=== PATIENT | female | born 1965 | race Caucasian/White ===

== ENCOUNTER 2023-06-27 09:05 | Emergency (ER) | payer OTHER ==
--- NOTE | 2023-06-27 09:21 | ERPHSYRPT ---
- History of Present Illness Time Seen by Provider: 06/27/23 09:20 Source: patient Exam Limitations: no limitations Physician History: This is a 58-year-old white female patient who states she has a history of mitral valve prolapse and she presents with left sided rib/chest pain that came on suddenly this morning at 7 AM after bending over the arm of a chair to pick something off the floor. She was fine prior to this. She is now having some tenderness in that same area with a deep breath. She has not had a fever. She denies sore throat. She denies cough. She describes the pain as a type of "grabbing". She has no documented coronary artery disease. She has no documented lung disease. Patient has a history of hypertension, gastroesophageal reflux disease and anxiety/depression issues. Timing/Duration: today Activities at Onset: other (Bent over the arm of a chair) Severity of Dyspnea-Max: none Severity of Dyspnea-Current: none Possible Cause: no prior episodes Modifying Factors: Improves With: deep breath (Hurts in the area that was bent over the chair this morning) Associated Symptoms: denies symptoms Allergies/Adverse Reactions: No Known Drug Allergies Allergy (Verified 06/27/23 09:06) Home Medications: Amlodipine Besylate 5 mg [Norvasc 5 mg] 1 tab PO DAILY 06/27/23 [History] Citalopram Hydrobromide [Celexa] 1 tab PO DAILY 06/27/23 [History] Estradiol [Estrace] 1 tab PO DAILY 06/27/23 [History] Medroxyprogesterone Acetate 1 tab PO DAILY 06/27/23 [History] Omeprazole 1 tab PO DAILY 06/27/23 [History] Travel Risk - International Travel Have you traveled outside of the country in past 3 weeks: No - Coronavirus Screening Are you exhibiting any of the following symptoms?: No Close contact with a COVID-19 positive Pt in past 14-21 Days: No - Review of Systems Constitutional: No Symptoms Eyes: No Symptoms Ears, Nose, & Throat: No Symptoms Respiratory: Other (Left side rib pain with deep inspiration) Cardiac: No Symptoms Abdominal/Gastrointestinal: No Symptoms Genitourinary Symptoms: No Symptoms Musculoskeletal: No Symptoms Skin: No Symptoms Neurological: No Symptoms Psychological: No Symptoms Endocrine: No Symptoms Hematologic/Lymphatic: No Symptoms Immunological/Allergic: No Symptoms All Other Systems: Reviewed and Negative - Past Medical History Neurological History: No Pertinent History Cardiac History: No Pertinent History Respiratory History: No Pertinent History Endocrine Medical History: No Pertinent History Musculoskeletal History: No Pertinent History - Nursing Vital Signs Nursing Vital Signs: Initial Vital Signs Temperature 98.7 F 06/27/23 09:05 Pulse Rate 74 06/27/23 09:05 Respiratory Rate 20 06/27/23 09:05 Blood Pressure 146/70 06/27/23 09:05 O2 Sat by Pulse Oximetry 96 06/27/23 09:05 Pain Scale Pain Intensity 8 - Physical Exam General Appearance: no apparent distress, alert, anxiety Eye Exam: PERRL/EOMI, eyes nml inspection Ears, Nose, Throat Exam: hearing grossly normal, normal ENT inspection, normal pharynx Neck Exam: normal inspection, non-tender, supple, full range of motion Respiratory Exam: normal breath sounds, chest tenderness (Left anterior lateral), lungs clear, airway intact, No respiratory distress Cardiovascular/Chest Exam: normal heart sounds, regular rate/rhythm Abdominal/Gastrointestinal Exam: soft, normal bowel sounds, No tenderness Rectal Exam: not done Extremity Exam: non-tender, normal range of motion, normal inspection, normal capillary refill, no calf tenderness, no pedal edema, pelvis stable Neurologic Exam: alert, oriented x 3, cooperative, newsagent II-XII nml as tested, normal mood/affect, nml cerebellar function, nml station & gait, sensation nml Skin Exam: normal color, warm, dry Lymphatic Exam: No adenopathy SpO2 Interpretation: normal O2 Delivery: Room Air - Course Nursing assessment & vital signs reviewed: Yes EKG Interpreted by Me: RATE (70), Sinus Rhythm, NORMAL AXIS, NORMAL INTERVALS, NORMAL QRS, NORMAL ST-T, Other (No acute ischemic changes on today's twelve-lead EKG) Ordered Tests: Active Orders 24 hr Category Date Time Status Cell Efficiency Supervisor STAT Care 06/27/23 09:35 Active EKG-ER Only STAT Care 06/27/23 09:34 Active CHEST 1 VIEW (PORTABLE) Stat Exams 06/27/23 09:34 Completed CBC W DIFF Stat Lab 06/27/23 09:50 Completed CMP Stat Lab 06/27/23 09:50 Completed D-DIMER QUANTITATIVE Stat Lab 06/27/23 09:50 Completed TROPONIN Q4H Lab 06/27/23 09:50 Completed TROPONIN Q4H Lab 06/27/23 13:45 Ordered TROPONIN Q4H Lab 06/27/23 17:45 Ordered Lab/Rad Data: Laboratory Result Diagrams 06/27/23 09:50 06/27/23 09:50 Laboratory Results 06/27/23 06/27/23 06/27/23 Range/Units 09:50 09:50 09:50 WBC (4.0-10.5) x10^3/uL RBC (4.1-5.4) x10^6/uL Hgb (12.0-16.0) g/dL Hct (35-47) % MCV (78-100) fL MCH (26-32) pg MCHC (32-36) g/dL RDW (11.5-14.0) % Plt Count (150-450) x10^3/uL MPV (7.5-11.0) fL Gran % (36.0-66.0) % Immature Gran % (Auto) (0.00-0.4) % Nucleat RBC Rel Count (0.00-0.1) % Eos # (Auto) (0-0.5) x10^3/uL Immature Gran # (Auto) (0.00-0.03) x10^3u/L Absolute Lymphs (auto) (1.0-4.6) x10^3/uL Absolute Monos (auto) (0.0-1.3) x10^3/uL Absolute Nucleated RBC (0.00-0.01) x10^3u/L Lymphocytes % (24.0-44.0) % Monocytes % (0.0-12.0) % Eosinophils % (0.00-5.0) % Basophils % (0.0-0.4) % Absolute Granulocytes (1.4-6.9) x10^3/uL Basophils # (0-0.4) x10^3/uL D-Dimer < 0.19 (0.0-0.50) mg/L Sodium 141 (137-145) mmol/L Potassium 4.2 (3.5-5.1) mmol/L Chloride 106 (98-107) mmol/L Carbon Dioxide 27 (22-30) mmol/L Anion Gap 12.4 (5-15) MEQ/L BUN 15 (7-17) mg/dL Creatinine 0.64 (0.52-1.04) mg/dL Estimated GFR > 60.0 ML/MIN Glucose 100 (74-106) mg/dL Calcium 8.7 (8.4-10.2) mg/dL Total Bilirubin 0.70 (0.2-1.3) mg/dL AST 23 (14-36) U/L ALT 25 (0-35) U/L Alkaline Phosphatase 95 (38-126) U/L Troponin I < 0.012 (0.000-0.034) ng/mL Serum Total Protein 7.6 (6.3-8.2) g/dL Albumin 4.1 (3.5-5.0) g/dL 06/27/23 Range/Units 09:50 WBC 6.0 (4.0-10.5) x10^3/uL RBC 4.44 (4.1-5.4) x10^6/uL Hgb 14.5 (12.0-16.0) g/dL Hct 44.7 (35-47) % MCV 100.7 H (78-100) fL MCH 32.7 H (26-32) pg MCHC 32.4 (32-36) g/dL RDW 12.6 (11.5-14.0) % Plt Count 286 (150-450) x10^3/uL MPV 10.1 (7.5-11.0) fL Gran % 56.6 (36.0-66.0) % Immature Gran % (Auto) 1.0 H (0.00-0.4) % Nucleat RBC Rel Count 0.0 (0.00-0.1) % Eos # (Auto) 0.22 (0-0.5) x10^3/uL Immature Gran # (Auto) 0.06 H (0.00-0.03) x10^3u/L Absolute Lymphs (auto) 1.53 (1.0-4.6) x10^3/uL Absolute Monos (auto) 0.70 (0.0-1.3) x10^3/uL Absolute Nucleated RBC 0.00 (0.00-0.01) x10^3u/L Lymphocytes % 25.7 (24.0-44.0) % Monocytes % 11.7 (0.0-12.0) % Eosinophils % 3.7 (0.00-5.0) % Basophils % 1.3 (0.0-0.4) % Absolute Granulocytes 3.37 (1.4-6.9) x10^3/uL Basophils # 0.08 (0-0.4) x10^3/uL D-Dimer (0.0-0.50) mg/L Sodium (137-145) mmol/L Potassium (3.5-5.1) mmol/L Chloride (98-107) mmol/L Carbon Dioxide (22-30) mmol/L Anion Gap (5-15) MEQ/L BUN (7-17) mg/dL Creatinine (0.52-1.04) mg/dL Estimated GFR ML/MIN Glucose (74-106) mg/dL Calcium (8.4-10.2) mg/dL Total Bilirubin (0.2-1.3) mg/dL AST (14-36) U/L ALT (0-35) U/L Alkaline Phosphatase (38-126) U/L Troponin I (0.000-0.034) ng/mL Serum Total Protein (6.3-8.2) g/dL Albumin (3.5-5.0) g/dL - Progress Progress: improved, re-examined Air Movement: good Progress Note: 06/27/23 09:56 This patient's medical issue is 1 of moderate complexity. The level complexity in the work-up performed is based on review of the patient's past medical history, review of the patient's medication list, review the patient drug allergy list, history present illness and physical findings on examination. The work-up in this patient includes twelve-lead EKG, D-dimer level, troponin level, chest x-ray, CBC and CMP. Chest x-ray was interpreted by the radiologist and I reviewed the impression. There is mild, left base discoid atelectasis versus scarring. The remainder of the chest x-ray is negative. 06/27/23 10:34 I reviewed and interpreted the results of the laboratory studies. There is no evidence of any acute, emergent medical issue. Likely, the patient has muscle skeletal pain. We will provide her ibuprofen 600 mg orally now. She may return to work without restrictions. We will send a prescription of Norflex to her pharmacy. Blood Culture(s) Obtained: No Antibiotics given: No Counseled pt/family regarding: lab results, diagnosis, need for follow-up, rad results Medical Desision Making - Diagnostic Testing Diagnostic test were ordered, analyzed, and reviewed by me: Yes Radiological Interpretation: Reviewed by me, Teleradiologist Report - Risk of complications The pt has a mod risk of morbidity or mortality based on: Need for prescription drug management - Departure Departure Disposition: Home Clinical Impression: Musculoskeletal pain Condition: Stable Critical Care Time: No Referrals: [facility] [Primary Care Provider] - Follow up/PCP as directed Additional Instructions: Take either ibuprofen or Tylenol as discussed at home for your pain. Continue your other medication as prescribed. Call your primary care provider today to make arranges for follow-up appointment in the next 3 to 5 days for further evaluation and management. Forms: Work/School Release Form Prescriptions: Orphenadrine Citrate 100 mg [Norflex 100 MG Tablet] 100 mg PO BID #10 tab
[2023-06-27 09:24] VITALS: TEMP 98.7
--- NOTE | 2023-06-27 09:48 | XRAY ---
Indication: Left chest pain. Comparison: None Portable chest demonstrates mild left base discoid atelectasis/scarring. Remaining heart and lungs unremarkable. Bony thorax intact.
[2023-06-27 09:58] LABS: Absolute Neutrophil Ct (ANC) 3.37 x10^3/uL (1.4-6.9); BASOPHIL % 1.3 % (0.0-0.4); Basophil (Absolute #) 0.08 x10^3/uL (0-0.4); Eosinophil % 3.7 % (0.00-5.0); Eosinophil (Absolute #) 0.22 x10^3/uL (0-0.5); Hematocrit 44.7 % (35-47); Hemoglobin 14.5 g/dL (12.0-16.0); IMMATURE GRAN # 0.06 x10^3u/L (0.00-0.03); Lymphocyte (Absolute #) 1.53 x10^3/uL (1.0-4.6); Lymphocytes % 25.7 % (24.0-44.0); Mean Cell Volume 100.7 fL (78-100); Mean Corpuscular Hemoglobin 32.7 pg (26-32); Mean Corpuscular Hgb Concent. 32.4 g/dL (32-36); Mean Platelet Volume 10.1 fL (7.5-11.0); Monocytes % 11.7 % (0.0-12.0); Neutrophil % 56.6 % (36.0-66.0); Platelet Count 286 x10^3/uL (150-450); Red Blood Count 4.44 x10^6/uL (4.1-5.4); Red Cell Distribution Width 12.6 % (11.5-14.0)
[2023-06-27 10:12] LABS: ALBUMIN 4.1 g/dL (3.5-5.0); ALKALINE PHOSPHATASE 95 U/L (38-126); ANION GAP 12.4 MEQ/L (5-15); BLOOD UREA NITROGEN 15 mg/dL (7-17); CHLORIDE 106 mmol/L (98-107); Calcium 8.7 mg/dL (8.4-10.2); Carbon Dioxide 27 mmol/L (22-30); Creatinine 1 0.64 mg/dL (0.52-1.04); EST GLOMERULAR FILTRATION RATE > 60.0 ML/MIN; Glucose 100 mg/dL (74-106); Potassium 4.2 mmol/L (3.5-5.1); SGOT/AST 23 U/L (14-36); SGPT/ALT 25 U/L (0-35); SODIUM 141 mmol/L (137-145); Total Protein 7.6 g/dL (6.3-8.2)
[2023-06-27 10:23] VITALS: PULSE 71
[2023-06-27] MEDS ORDERED: MOTRIN 600 MG PO ONE (10:33)
[2023-06-27] MEDS ORDERED: MOTRIN 600 MG ONE (10:50)
[2023-06-27 10:57] VITALS: BP 128/73; RESP 18; O2SAT 98
== END 2023-06-27 11:04 | disposition home or self-care (01) ==
LOC: ED 09:05
DX: R07.81 Pleurodynia (principal); I10 Essential (primary) hypertension; Z79.899 Other long term (current) drug therapy
CPT/HCPCS: 36415; 71045; 80053; 84484; 85025; 85379; 93005; 93041; 99284; A9270-GY

== ENCOUNTER 2024-01-02 23:19 | Emergency (ER) | payer OTHER ==
--- NOTE | 2024-01-02 23:23 | ERPHSYRPT ---
- History of Present Illness Time Seen by Provider: 01/02/24 23:22 Source: patient Exam Limitations: no limitations Physician History: This is a 58-year-old white female patient who presents to the emergency department with left third digit swelling and burning sensation pain after reaching in to a grassy area and felt as though she might have been bit by some type of insect. It was not seen. Patient does have an allergy to bee stings. She did not notice any bees in the area she was at. Patient has a history of mitral valve prolapse, hypertension, gastroesophageal reflux disease, anxiety, depression Occurred: just prior to arrival Method of Injury: other (Possible insect bite) Severity of Pain-Max: mild Severity of Pain-Current: mild Extremities Pain Location: 3rd finger: left Modifying Factors: Improves With: nothing Associated Symptoms: none Allergies/Adverse Reactions: No Known Drug Allergies Allergy (Verified 06/27/23 09:06) Home Medications: Amlodipine Besylate 5 mg [Norvasc 5 mg] 1 tab PO DAILY 06/27/23 [History] Citalopram Hydrobromide [Celexa] 1 tab PO DAILY 06/27/23 [History] Estradiol [Estrace] 1 tab PO DAILY 06/27/23 [History] Medroxyprogesterone Acetate 1 tab PO DAILY 06/27/23 [History] Omeprazole 1 tab PO DAILY 06/27/23 [History] Hx Tetanus, Diphtheria Vaccination/Date Given: Yes Hx Influenza Vaccination/Date Given: Yes Hx Pneumococcal Vaccination/Date Given: No Travel Risk - International Travel Have you traveled outside of the country in past 3 weeks: No - Emerging Infectious Disease Are you exhibiting symptoms associated with any current EIDs: No - Review of Systems Constitutional: No Symptoms Eyes: No Symptoms Ears, Nose, & Throat: No Symptoms Respiratory: No Symptoms Cardiac: No Symptoms Abdominal/Gastrointestinal: No Symptoms Genitourinary Symptoms: No Symptoms Musculoskeletal: Other (Mild swelling left third digit of the hand) Skin: No Symptoms Neurological: No Symptoms Psychological: No Symptoms Endocrine: No Symptoms Hematologic/Lymphatic: No Symptoms Immunological/Allergic: No Symptoms All Other Systems: Reviewed and Negative - Past Medical History Pertinent Past Medical History: Yes Neurological History: No Pertinent History Cardiac History: No Pertinent History Respiratory History: No Pertinent History Endocrine Medical History: No Pertinent History Musculoskeletal History: No Pertinent History GI Medical History: GERD Psycho-Social History: Anxiety, Depression Other Medical History: Mitral Valve Prolapse, Pleurisy - Past Surgical History Past Surgical History: Yes Female Surgical History: Section - Social History Smoking Status: Never smoker Exposure to second hand smoke: No Drug Use: none Patient Lives Alone: No - Physical Exam General Appearance: no apparent distress, alert, anxiety Eyes, Ears, Nose, Throat Exam: normal ENT inspection, moist mucous membranes Neck Exam: normal inspection, non-tender, supple, full range of motion Cardiovascular/Respiratory Exam: chest non-tender, no respiratory distress Abdominal Exam: non-tender Back Exam: normal inspection, normal range of motion, No CVA tenderness, No vertebral tenderness Shoulder Exam: normal inspection, non-tender, no evidence of injury, normal ROM Elbow/Forearm Exam: normal inspection, non-tender, no evidence of injury, normal ROM Wrist Exam: normal inspection, non-tender, no evidence of injury, normal ROM Hand Exam: normal ROM, soft tissue tenderness (Left third digit of the hand), swelling (Mild swelling left third digit of the hand with faint "puncture" sites x 2) Neuro/Tendon Exam: normal sensation, normal motor functions, normal tendon functions Mental Status Exam: alert, oriented x 3, cooperative Skin Exam: other (See above extremity section/hand) SpO2 Interpretation: normal O2 Delivery: Room Air - Course Nursing assessment & vital signs reviewed: Yes Ordered Tests: Medication Summary Discontinued Medications Generic Name Dose Route Start Last Admin Trade Name Freq PRN Reason Stop Dose Admin Diphenhydramine HCl 50 mg 01/02/24 23:29 Diphenhydramine Hcl 25 Mg Capsule PO 01/02/24 23:30 STAT ONE Famotidine 40 mg 01/02/24 23:29 Famotidine 20 Mg Tablet PO 01/02/24 23:30 STAT ONE Prednisone 20 mg 01/02/24 23:30 Prednisone 20 Mg Tablet PO 01/02/24 23:31 STAT ONE - Progress Progress: unchanged Progress Note: 01/02/24 23:38 My medical decision making and the assignment of low complexity to this medical issue is based on review of the patient's past medical history, review the patient's medication list, review the patient drug allergy list, history present illness and physical findings on examination. No radiographic or laboratory studies are necessary in this patient Differential diagnosis includes insect bite, allergic reaction, topical exposure to allergen Counseled pt/family regarding: diagnosis, need for follow-up Medical Desision Making - Independent Historian Additional History obtained from: Family - Diagnostic Testing Diagnostic test were ordered, analyzed, and reviewed by me: No - Risk of complications The pt has a mod risk of morbidity or mortality based on: Need for prescription drug management - Departure Departure Disposition: Home Clinical Impression: Allergic reaction Condition: Stable Critical Care Time: No Referrals: [facility] [Primary Care Provider] - Follow up/PCP as directed Additional Instructions: Ice pack to area 3 times a day for the next 48 hours. Use Benadryl 25 mg orally every 8 hours for the next 4 days. Take your Pepcid prescription daily for 5 days. If redness persists despite using Benadryl and Pepcid, fill the prescription for prednisone and the antibiotic to treat increased cellulitis if there is redness and warmth present. Follow-up with your primary care provider on 01/05/2024 to arrange an appointment for further evaluation and management. Prescriptions: Prednisone 10 mg [Deltasone 10 mg] 10 mg PO TID #12 tablet Cephalexin Mh 500 mg [Keflex 500 mg] 500 mg PO TID #15 cap Famotidine 20 mg [Pepcid 20 MG] 20 mg PO DAILY #5 tablet
[2024-01-02 23:36] VITALS: BP 157/80; PULSE 75; RESP 18; TEMP 97.9; O2SAT 95
[2024-01-02] MEDS ORDERED: BENADRYL 25 MG CAPSULE ONE (23:41)
[2024-01-02] MEDS ORDERED: Pepcid 20 MG ONE (23:41)
[2024-01-02] MEDS ORDERED: DELTASONE 20 MG ONE (23:41)
[2024-01-02] MEDS: BENADRYL 25 MG CAPSULE PO ONE (23:45)
[2024-01-02] MEDS: DELTASONE 20 MG PO ONE (23:45)
[2024-01-02] MEDS: Pepcid 20 MG PO ONE (23:45)
== END 2024-01-03 00:10 | disposition home or self-care (01) ==
LOC: ED 23:19
DX: T78.40XA Allergy, unspecified, initial encounter (principal); M79.645 Pain in left finger(s); I10 Essential (primary) hypertension; Z79.52 Long term (current) use of systemic steroids; Z79.899 Other long term (current) drug therapy
CPT/HCPCS: 99282; A9270-GY

== ENCOUNTER 2025-06-07 05:57 | Day surgery (SDC) | payer OTHER ==
[2025-06-07] MEDS ORDERED: CEFAZOLIN SODIUM ONE (06:11)
[2025-06-07] MEDS: Lactated Ringers 1,000 ML IV SCH (06:15)
[2025-06-07 06:32] LABS: Hematocrit 41.4 % (34.1-44.9); Hemoglobin 13.7 g/dL (11.2-15.7); Mean Corpuscular Hemoglobin 33.3 pg (25.6-32.2); Mean Corpuscular Hgb Concent. 33.1 g/dL (32.2-35.5); Platelet Count 254 x10^3/uL (182-369); Red Blood Count 4.11 x10^6/uL (3.93-5.22); White Blood Count 7.7 x10^3/uL (3.98-10.04)
[2025-06-07 06:47] LABS: Calcium 8.6 mg/dL (8.4-10.2); Carbon Dioxide 27.0 mmol/L (22-30); Creatinine 1 0.79 mg/dL (0.52-1.04); EST GLOMERULAR FILTRATION RATE 86.1 ML/MIN; Glucose 94.0 mg/dL (74-106); Potassium 4.1 mmol/L (3.5-5.1); SGOT/AST 19.0 U/L (14-36); SGPT/ALT 13.0 U/L (0-35); Total Protein 7.4 g/dL (6.3-8.2)
[2025-06-07] MEDS ORDERED: Marcaine Mpf 0.5% Vial 30 Ml ONE (06:55)
[2025-06-07] MEDS ORDERED: Xylocaine 1% Vial 30 ML PF IJ ONE (06:55)
[2025-06-07] MEDS ORDERED: Versed 2 MG/2 ML Injection ONE (07:28)
[2025-06-07] MEDS ORDERED: Xylocaine-Mpf 2% 5 Ml Vial ONE (07:28)
[2025-06-07] MEDS ORDERED: propofoL IV ONE ×2 (07:28→07:44)
[2025-06-07] MEDS ORDERED: SUBLIMAZE 100 MCG/2 ML ONE (07:28)
[2025-06-07 08:41] VITALS: RESP 14; TEMP 97.3
[2025-06-07 08:59] VITALS: BP 152/85; PULSE 75; O2SAT 100
--- NOTE | 2025-06-09 11:49 | OP ---
SURGERY DATE/TIME: 06/07/2025 [id number] PREOPERATIVE DIAGNOSES: 1) Ingrowing toenail. 2) Right foot pain. 3) Left foot pain. 4) Onychomycosis. POSTOPERATIVE DIAGNOSES: 1) Ingrowing toenail. 2) Right foot pain. 3) Left foot pain. 4) Onychomycosis. PROCEDURE: Nail avulsion with matrixectomy, hallux bilateral. SURGEON: Sridhar Friend DPM FRONT TENDER: None. ANESTHESIA: Monitored anesthesia care plus intraoperative local block. See injectables for details. HEMOSTASIS: Pressure dressing. ESTIMATED BLOOD LOSS: Approximately 2 mL. MATERIALS: None. INJECTABLES: 20 mL of 1:1 mixture of 1% lidocaine plain and 0.5% bupivacaine plain injected in a hallux block-type fashion to the bilateral lower extremities; 20 mL total, 10 mL per hallux. INDICATIONS: The patient is a very pleasant 60-year-old female who presented to my service with complaints of ingrowing toenail as well as onychomycosis of the bilateral hallux toes. From that standpoint, patient has a significant amount of anxiety and was consented for the procedure in office; however, given the severity of her anxiety and options being discussed, patient preferred to undergo mild sedation for the procedure. Patient has been made aware of all risks, complications, and benefits of surgical intervention at this time including, but not limited to, infection, hematoma, seroma, possibility of delayed wound healing, non-wound healing, possible need for further surgical intervention, possible failure of surgical intervention. Plenty of time was allowed for the patient to ask questions, which were answered to her apparent satisfaction. It is at this time we decided to proceed. DESCRIPTION OF PROCEDURE AND FINDINGS: Patient was brought into the operating room and placed on the operating room table in the supine position. At this time, monitored anesthesia care was administered until the patient was adequately sedated. Bilateral lower extremities were prepped and draped in the typical sterile fashion and lowered onto the surgical field. A 10 mL injection was utilized to block the hallux in a hallux block-type fashion, utilizing 10 mL of a 1:1 mixture of 1% lidocaine plain and 0.5% bupivacaine plain injected in a hallux block to the right and left hallux. Once this took effect, a Mansfield was utilized to elevate the nail from the nail bed. This was carried down to the nail matrix, and then utilizing a curved Bety, this was then removed from the site. A small curette was then utilized to damage the nail matrix; 89% phenol was utilized to ablate the nail matrix with three 30-second applications, making sure to cover the entirety of the nail matrix. From that standpoint, 70% isopropyl alcohol was utilized to flush the surgical sites. A dressing consisting of Silvadene, 2 x 2, 1-inch [place], and Coban was then applied to the right and left hallux. Patient was then reversed from anesthesia and returned to the postoperative anesthesia care unit with vital signs stable and vascular status intact. Patient handled the anesthesia as well as the procedure without significant complication. Postoperative orders as indicated in the patient's discharge chart.
== END 2025-06-07 09:03 | disposition home or self-care (01) ==
LOC: SDC 05:57
PROVIDERS: ATTEND Podiatrist Foot & Ankle Surgery
DX: L60.0 Ingrowing nail (principal); M79.671 Pain in right foot; M79.672 Pain in left foot; B35.1 Tinea unguium